=== PATIENT | female | born 1960 | race Caucasian/White ===

== ENCOUNTER 2016-08-21 23:50 | Emergency (ER) | payer OTHER ==
[~2016-08-21 23:50] MED LIST: GLUCOTRO10 PO; PCET PO; PRINZIDE1 TAB PO; SEPTRA DS PO
== END 2016-08-22 04:12 | disposition home or self-care (01) ==
LOC: ER 23:50
DX: G89.18 Other acute postprocedural pain (principal); R07.89 Other chest pain; Z79.899 Other long term (current) drug therapy
CPT/HCPCS: 71020; 99283